=== PATIENT | female | born 1965 | race Caucasian/White ===

== ENCOUNTER 2020-12-30 06:03 | Inpatient (IN) ==
[~2020-12-30 06:03] MED LIST: Ringers Solution, Lactated 1,000 ML IVC SCH
[2020-12-30] MEDS ORDERED: CeFAZolin Syr 2,000MG/20 ML 2,000 MG/20 ML SYRINGE IVPB ONE (06:23)
[2020-12-30] MEDS ORDERED: Ketorolac 15 MG/ML VIAL IVP ONE (06:23)
[2020-12-30] MEDS ORDERED: Acetaminophen IV 1,000 MG/100 ML BAG IVPB ONE ×2 (07:09→09:06)
[2020-12-30] MEDS ORDERED: *HR* Rocuronium Bromide 50 MG/5 ML VIAL ONE (07:14)
[2020-12-30] MEDS ORDERED: Dexamethasone 4 MG/ML VIAL ONE (07:14)
[2020-12-30] MEDS ORDERED: Lidocaine -MPF 2% 2 ML VIAL ONE (07:14)
[2020-12-30] MEDS ORDERED: Ondansetron 4 MG/2 ML VIAL ONE (07:14)
[2020-12-30] MEDS ORDERED: *HR* FentaNYL (PF) 100 MCG/2 ML VIAL ONE (07:15)
[2020-12-30] MEDS ORDERED: *HR* Magnesium Sulfate 1 GM/2 ML VIAL ONE (07:15)
[2020-12-30] MEDS ORDERED: *HR* Propofol 200 MG/20 ML VIAL IVP ONE (07:16)
[2020-12-30] MEDS ORDERED: *HR* HYDROcodone/Acet 5/325 mg TABLET PO PRN ×2 (08:00→09:24)
[2020-12-30] MEDS ORDERED: Morphine Sulfate 2 MG/ML SYRINGE IVP PRN (08:00)
[2020-12-30] MEDS ORDERED: Ondansetron 4 MG/2 ML VIAL IVP PRN ×2 (08:00→09:24)
[2020-12-30] MEDS ORDERED: EPHEDrine 50 MG/ML VIAL ONE (08:01)
[2020-12-30] MEDS ORDERED: *HR* PHENYLEPHRINE 1,000 MCG/10 ML SYRINGE IVP ONE (08:04)
[2020-12-30] MEDS ORDERED: EPINEPHrine 1 MG/ML VIAL ONE (08:35)
[2020-12-30] MEDS ORDERED: Ketorolac 30 MG/ML VIAL ONE (09:10)
[2020-12-30] MEDS ORDERED: Sugammadex Sodium 200 MG/2 ML VIAL IV ONE (09:17)
[2020-12-30] MEDS ORDERED: Naloxone 0.4 MG/ML INJ IVP PRN (09:24)
[2020-12-30] MEDS ORDERED: *HR* HYDROmorphone (PF) 1 MG/ML SYRINGE IVP PRN (09:30)
[2020-12-30] MEDS ORDERED: Ringers Solution, Lactated 1,000 ML IVC SCH (09:30)
[2020-12-30] MEDS: Ketorolac 15 MG/ML VIAL IVP SCH ×2 (12:50→18:23)
[2020-12-30] MEDS: ceFAZolin 1,000 MG in Water for inj. (sterile) 10 ML IVP SCH (16:25)
[2020-12-30] MEDS ORDERED: ALPRAZolam 0.5 MG TABLET PO PRN (18:53)
[2020-12-30] MEDS ORDERED: Metoprolol XL (24 HR) Succ 50 MG TAB.ER.24H PO SCH ×2 (21:00→21:45)
[2020-12-30] MEDS ORDERED: IMIPRAMINE HCL 10 MG PO SCH (21:00)
[2020-12-31] MEDS: ceFAZolin 1,000 MG in Water for inj. (sterile) 10 ML IVP SCH ×2 (00:35→05:15)
[2020-12-31] MEDS: Ketorolac 15 MG/ML VIAL IVP SCH ×2 (00:36→05:15)
[2020-12-31 05:58] LABS: Basophils % 0.1 %; Eosinophils % 0.1 %; Hematocrit 41.5 % (35.3-44.9); Hemoglobin 13.7 g/dL (11.5-15.4); Immature Granulocytes % 0.3 % (0-4); Lymphocytes # 1.1 K/mcL (0.6-4.6); Lymphocytes % 9.9 %; Mean Corpuscular Hemoglobin 29.8 pg (28.0-33.3); Mean Corpuscular Volume 90.4 fL (83.0-100.0); Mean Platelet Volume 10.4 fL (9.4-12.4); Monocytes # 1.2 K/mcL (0.0-1.3); Monocytes % 10.4 %; Platelet Count 212 K/mcL (140-400); Red Blood Count 4.59 M/mcL (3.82-4.97); Red Cell Distribution Width 12.6 % (11.5-14.5); Segmented Neutrophils % 79.2 %; White Blood Count 11.4 K/mcL (4.3-11.1)
[2020-12-31 06:24] LABS: eGFR For African Americans > 60 (> 60); eGFR For Non-African Americans > 60 (> 60)
[2020-12-31 08:00] VITALS: BP 120/81
== END 2020-12-31 12:20 | disposition home or self-care (01) | DRG 519 ==
LOC: SAMDAY 06:03 → 1NENUPED 10:26
PROVIDERS: ADMIT Obstetrics & Gynecology; ATTEND Obstetrics & Gynecology